=== PATIENT | female | born 1960 | race Caucasian/White ===

== ENCOUNTER 2016-05-09 09:58 | Emergency (ER) | payer OTHER ==
--- NOTE | 2016-05-09 11:26 | UCPHY ---
H & P Time Seen by Provider: 05/09/16 10:18 Patient Type: New HPI/ROS: HPI Rash. 55-year-old female by private vehicle. She complains of a rash left side, mid abdomen for 1 week. Describes it as itchy and somewhat painful. Concerned about a possible spider bite. No fever. No other complaints. She has not had this rash before. ROS: Constitutional: No fever, no chills. No weakness. Respiratory: No cough. No shortness of breath. Cardiac: No chest pain, no palpitations. Gastrointestinal: No abdominal pain, no vomiting, no diarrhea. Musculoskeletal: No back pain. No neck pain. No myalgias or arthralgias. Skin: As above. Neurological: No headache. No focal weakness or altered sensation. Past medical history: Alcohol abuse. She does not currently have a primary care physician. Social history: As above. Here by herself. Physical Exam: General Appearance: Alert, no distress. Obese habitus. This patient is responding to questions appropriately and in full sentences. This patient appears well-hydrated and well-nourished. Eyes: Pupils equal and round no pallor or injection. No lid edema, erythema or injection. Gastrointestinal: Abdomen is soft and nontender, no masses, bowel sounds normal. No focal tenderness at McBurney's point. No Frias sign. Neurological: Motor sensory function is grossly intact. Cranial nerves are normal. Gait is normal. Skin: Warm and dry, splotchy, vesicular rash, T10 dermatomal distribution left- sided only. No active bleeding or weeping. No petechiae. No evidence of associated cellulitis. Musculoskeletal: Neck is supple and nontender. Extremities are symmetrical. All joints range without pain or impingement. Psychiatric: No agitation. No depression. Database: EKG: Imaging: Procedures: Emergency department course: Patient's rash is indicative of zoster. Patient started on valacyclovir at urgent care. Recent med analysis demonstrated no benefit in adding steroids to the treatment. She is not in significant pain. Plan is for discharge with prescription for valacyclovir. I will refer her to primary care physician for re -evaluation and further management. Plan of management discussed with patient. All of her questions were answered. Return to Urgent Care precautions reviewed. She was discharged in good condition. Differential Diagnosis: The differential diagnosis on this patient includes but is not limited to varicella zoster. Cellulitis, abscess unlikely. This represents a partial list of diagnoses considered. These considerations are based on history, physical exam, past history, reassessment and diagnostic testing. Smoking Status: Current every day smoker Constitutional: Initial Vital Signs Temperature (C) 36.6 C 05/09/16 10:06 Heart Rate 71 05/09/16 10:06 Respiratory Rate 16 05/09/16 10:06 Blood Pressure 106/56 L 05/09/16 10:06 O2 Sat (%) 91 L 05/09/16 10:06 O2 Delivery Mode Room Air Allergies/Adverse Reactions: No Known Allergies Allergy (Unverified 05/09/16 11:28) Home Medications: Medication Instructions Recorded Valacyclovir HCl [Valtrex] 1,000 mg PO TID #21 tab 05/09/16 Medical Decision Making - Data Points Medications Given: Discontinued Medications Valacyclovir HCl (Valtrex) 1,000 mg PO EDNOW ONE Stop: 05/09/16 11:30 Last Admin: 05/09/16 11:37 Dose: Not Given Departure - Departure Disposition: Home, Routine, Self-Care Clinical Impression: Shingles rash Condition: Good Instructions: Shingles (ED) Additional Instructions: Read and follow provided instructions. Follow-up with your primary care physician or the primary care physician that I have referred you, in 2-3 days for re-evaluation. Take medication as prescribed. Return to the emergency department for worsening symptoms, worsening rash, fever , swelling or other serious concerns. Referrals: Lisa Almendarez MD [Medical Doctor] - As per Instructions Karen Neumann MD [Medical Doctor] - As per Instructions Prescriptions: Valacyclovir HCl [Valtrex] 1,000 mg PO TID #21 tab - PQRS PQRS Measurement: Not applicable.
[2016-05-09] MEDS ORDERED: valACYclovir 500 MG TAB PO ONE (11:29)
[2016-05-09 11:37] VITALS: BP 115/64; PULSE 89; RESP 20; TEMP 98.6; O2SAT 95
== END 2016-05-09 11:40 | disposition home or self-care (01) ==
LOC: CED 09:58
DX: B02.9 Zoster without complications (principal)
CPT/HCPCS: 99203-PO; G0463-PO

== ENCOUNTER → 2016-12-22 | Outpatient (CLI) | payer OTHER ==
[~2016-12-22] MED LIST: IOPAMIDOL (ISOVUE-300) 100 ML BTL ONE
== END ==
LOC: FIMAGING 15:53
PROVIDERS: ATTEND Physician Assistant
DX: R19.00 Intra-abdominal and pelvic swelling, mass and lump, unspecified site (principal)
CPT/HCPCS: Q9967

== ENCOUNTER → 2017-01-25 | Outpatient (CLI) | payer OTHER | LOC: FIMAGING 12:29 | DX: Z01.810 Encounter for preprocedural cardiovascular examination (principal); J98.4 Other disorders of lung; E03.9 Hypothyroidism, unspecified; Z72.0 Tobacco use ==